=== PATIENT | female | born 1930 | race Caucasian/White ===

== ENCOUNTER 2017-03-01 15:29 | Inpatient (IN) | payer OTHER ==
--- NOTE | ~2017-03-01 | CN ---
Consultation Report [facility] [address] [place]. [address] NAME: MARY KOENIG : 30 STATUS : DIS IN PAT#: [id number] AGE: 86 ADM/REG DATE : 03/01/17 MR#: [id number] REPORT SERV DATE: 03/07/17 DICTATED BY: EDWARD WALDEN DATE: 03/06/17 REPORT STATUS : Draft TRANSCRIBED BY: MODL DATE: 03/06/17 DATE OF CONSULTATION: 03/05/2017 Consultation REASON FOR CONSULTATION: Urinary retention. HISTORY OF PRESENT ILLNESS: Ms. Koenig is an 86-year-old female, who is admitted to the (inaudible) hospital with cough, suprapubic tenderness with difficulty urination. She is admitted to the Hospitalist Service. Upon admission, she was found to have urinary retention with bladder. A Durand catheter was placed. She has had trouble with urination for quite some time, it is unclear how long she has actually been in the urinary retention. Catheter is draining well, and her urine is clear. I have been asked to consult regarding her urinary retention. PAST MEDICAL HISTORY: COPD, history of pneumonia, hyperthyroidism, ischemic colitis, anemia, rheumatoid arthritis, chronic back pain, neuropathy, history of paroxysmal atrial fibrillation. SURGICAL HISTORY: Partial colectomy, small bowel resections, cataracts, hemorrhoidectomy, right total knee replacement, right ankle ORIF, hysterectomy, salpingo-oophorectomy. SOCIAL HISTORY: Former smoker. No drinking. No drugs. Accompanied by her family. ALLERGIES: MORPHINE, CODEINE, HYDROCODONE, ERYTHROMYCIN, ZOFRAN. MEDICATIONS: Reviewed and listed in the chart. FAMILY HISTORY: Noncontributory. REVIEW OF SYSTEMS: A 12-point review of systems was performed. Pertinent positives are listed in the HPI. PHYSICAL EXAMINATION: VITAL SIGNS: Afebrile, blood pressure 137/66, heart rate 88, saturating 100% on 3L. GENERAL: In no acute distress. She appears her stated age. HEENT: normocephalic and atraumatic. LUNGS: Breathing is nonlabored. She is not in respiratory distress. HEART: Pulse is regular in rate and rhythm. ABDOMEN: Soft, nontender, nondistended. She has a CVA tenderness. NEURO: She is alert and oriented x3. Durand catheter is in place. Urine clear. No cyanosis or edema. IMAGING: No pertinent imaging. Consultation Report [address] [place]. [address] NAME: MARY KOENIG : 30 STATUS : DIS IN PAT#: [id number] AGE: 86 ADM/REG DATE : 03/01/17 MR#: [id number] REPORT SERV DATE: 03/07/17 DICTATED BY: EDWARD WALDEN DATE: 03/06/17 REPORT STATUS : Draft TRANSCRIBED BY: SIMIN DATE: 03/06/17 LABORATORY DATA: White count 14.3, hemoglobin 8.5, creatinine is 0.88. ASSESSMENT AND PLAN: Ms. Koenig has acute urinary retention with a high residual of a liter. This includes dysfunction of her bladder. However, at this time, I will allow her to keep her Durand catheter for a week while rest of her bladder hoping slightest recovery. Get her bach to clinic next Tuesday for a fill pull void. If she is able to pass this, then we will re-evaluate her in a week to make sure she is still doing well. She was found to be in chronic retention, wiil have options including Durand catheter, suprapubic tube, intermittent catheterization for consideration of InterStim. She is clearly not the healthiest of patients. Will be slow to advise any sort of operative intervention. Thank you for this consultation. RHONDA/SIMIN Edward Walden MD / [id number] CC: Selwyn Crane M.D. Lata Diop
--- NOTE | ~2017-03-01 | HP ---
History And Physical [place] [id number] [facility] [place]. [address] NAME: MARY HALL : 30 STATUS : ADM IN [facility]#: [id number] AGE: 86 ADM/REG DATE : 03/01/17 MR#: [id number] REPORT SERV DATE: 03/02/17 DICTATED BY: AVIS SCHULTZ DATE: 03/01/17 REPORT STATUS : Draft TRANSCRIBED BY: MODL DATE: 03/01/17 DATE OF ADMISSION: 03/01/2017 CHIEF COMPLAINT: Increasing shortness of breath, nonproductive cough, and wheezing for three to four days as well as suprapubic tenderness and difficulty urinated for more than two weeks. HISTORY OF PRESENT ILLNESS: This is a very pleasant 86-year-old female. She has a reported history of COPD she use oxygen at night, history of coronary artery disease status post prior PCI, history of GERD, hypothyroidism, prior history of diverticulitis, she had prior small bowel resection and prior partial colectomy. She has a history of ischemic colitis as well, rheumatoid arthritis, peripheral neuropathy, pneumonia, hypothyroidism, chronic back pain, presenting today to emergency room with three to four days complaints of increasing shortness of breath, non-productive cough as well as wheezing, and for two weeks increased urinary frequency, urgency, dysuria, and difficulty urinating. According to the patient, the symptoms of difficulty urinating is going on for a couple of actually months, but most progressive over the last couple of weeks. She has seen her primary care provider. She has been treated with antibiotics for presumed UTI and then for a presumed fungus of yeast infection; however, she has been presenting today mostly because of this increasing shortness of breath, wheezing, and weakness. She has not had any chest pain or PND or orthopnea. No palpitations. She did have some slight pedal edema, but no orthopnea or PND. No presyncope or syncope. She does have a history of cardiac murmur, but she does not have any history of any rheumatic fever. She has been evaluated in the emergency room and Hospitalist Service has been asked for admission, further evaluation, and treatment. PAST MEDICAL HISTORY: Significant for COPD, history of pneumonia, hypothyroidism, ischemic colitis, anemia, rheumatoid arthritis, chronic back pain, neuropathy. She also has had a history of pneumonia, paroxysmal atrial fibrillation, and history of prior colonic perforations secondary to one colonoscopy. PAST SURGICAL HISTORY: Would include partial colectomy status post small-bowel resection, cataract extraction with lens implants, hemorrhoidectomy, right total knee replacement, right ankle open reduction and internal fixation. She has total post hysterectomy and salpingo-oophorectomy. SOCIAL HISTORY: She is not a smoker, she quit in 1985. No alcohol. No IV drugs. ALLERGIES: SHE IS ALLERGIC TO MORPHINE, CODEINE, HYDROCODONE, ERYTHROMYCIN, AND ZOFRAN. HOME MEDICATIONS: Medications at home include: 1. Tylenol. 2. Xanax. 3. Aspirin. 4. Symbicort. 5. Vitamin B12. 6. Prolia. History And Physical [address] [address] NAME: MARY HALL : 30 STATUS : ADM IN [facility]#: [id number] AGE: 86 ADM/REG DATE : 03/01/17 MR#: [id number] REPORT SERV DATE: 03/02/17 DICTATED BY: AVIS SCHULTZ DATE: 03/01/17 REPORT STATUS : Draft TRANSCRIBED BY: SIMIN DATE: 03/01/17 7. Iron sulfate. 8. Neurontin. 9. Plaquenil. 10.Levothyroxine. 11.Antivert. 12.Lialda. 13.Singulair. 14.Aleve. 15.Nitroglycerin. 16.Prilosec. 17.MiraLAX. 18.Systane. 19.Sulfasalazine. 20.Vitamin E. 21.Tramadol. REVIEW OF SYSTEMS: A 14-point review of systems has been obtained and pertinent positive has been listed into the history of present illness. Otherwise, negative except those underlying above. FAMILY HISTORY: Significant for coronary artery disease, diabetes, hypertension, and depression. PHYSICAL EXAMINATION: VITAL SIGNS: The patient is afebrile. Blood pressure 137/66, heart rate 88, respiratory rate 17, and saturating 100% on 3 L of oxygen. GENERAL: She is a very pleasant, well-developed, well-nourished female, in no acute distress. She is alert and oriented x3. Nonfocal. She follows all commands appropriately. HEENT: Pupils equal, round, and reactive to light. Extraocular movements intact. No JVD. No lymphadenopathy. No thyromegaly appreciated. CHEST: Bilateral air entry. Scattered wheezes, few crackles bibasilarly. No use of accessory muscles. CARDIOVASCULAR: Regular rate and rhythm. S1, S2 positive. No S3, no S4. No murmurs, rubs, or gallops appreciated. ABDOMEN: Soft with positive bowel sounds. Nontender. No guarding. No rebound. EXTREMITIES: No clubbing or cyanosis. There are trace edema. Pulses +2 present bilaterally. LABORATORY DATA: Labs from today include sodium 139, potassium 3.6, chloride 107, CO2 of 28, BUN 10, creatinine 0.96, and glucose is 90. Her troponin I is less than 0.02. Her BNP is 295.9. Her white count is 8, hemoglobin 10, hematocrit 30.5, and platelets 209. INR is 1.2. Her UA has been negative. History And Physical [address] [address] NAME: MARY HALL : 30 STATUS : ADM IN [facility]#: [id number] AGE: 86 ADM/REG DATE : 03/01/17 MR#: [id number] REPORT SERV DATE: 03/02/17 DICTATED BY: AVIS SCHULTZ DATE: 03/01/17 REPORT STATUS : Draft TRANSCRIBED BY: SIMIN DATE: 03/01/17 Chest x-ray, portable, performed in the emergency room shows chronic changes, mild congestion. ASSESSMENT: This is a very pleasant 86-year-old with: 1. Chronic obstructive pulmonary disease exacerbation. 2. Possible mild congestive heart failure. 3. Urinary retention. 4. History of hypothyroidism. 5. History of gastroesophageal reflux disease. 6. History of gastrointestinal bleed. 7. History of diverticulitis. 8. History of degenerative joint disease. 9. History of rheumatoid arthritis. PLAN: 1. The patient is going to be admitted to Hospitalist Service regarding her COPD exacerbation. Place her on oxygen. Place her on steroids nebulizer treatments, antibiotics empiric. We will continue her Symbicort. We will give her a dose of Lasix tonight. Follow up on CT of the chest without contrast in the morning, blood cultures as well and check a procalcitonin level. 2. Possible mild congestive heart failure. We are going to rule the patient out for SC by serial cardiac enzymes, serial EKG. Check on 2D echo. Continue her home medication. Give her Lasix tonight. 3. Urinary retention. Durand catheter. Strict I's and O's. Strict daily weights. 4. History of hypothyroidism. Continue her home medication. Check a TSH and free T4. 5. Peripheral neuropathy. Continue her home medication. Provide reasonable pain and nausea control as well as GI and DVT prophylaxis. Further workup and recommendation pending above. It is worthwhile to note that the patient is going to be followed up by Hospitalist Service. CF/MODL Avis Schultz M.D. / [id number] CC: Naveen Hernández PA-C
--- NOTE | ~2017-03-01 | DS ---
Discharge Summary [facility] [address] [place]. [address] NAME: MARY HALL : 30 STATUS : DIS IN PAT#: [id number] AGE: 86 ADM/REG DATE : 03/01/17 MR#: [id number] REPORT SERV DATE: 03/04/17 DICTATED BY: DATE: REPORT STATUS : Draft TRANSCRIBED BY: MODL DATE: 03/03/17 ADMISSION DATE: 03/01/2017 DISCHARGE DATE: 03/03/2017 CONSULTANTS: Included Dr. Walden of Urology. DISCHARGE DIAGNOSES: 1. Acute urinary retention - probably chronic. Status post Durand catheterization. To discharge with a Durand catheter in place, and outpatient voiding trial with Dr. Walden. 2. Acute chronic obstructive pulmonary disease exacerbation. 3. Acute bronchitis. 4. Acute on chronic hypoxemic respiratory failure - evaluation for home daytime oxygen use pending. 5. Pulmonary edema at admission - no evidence of congestive heart failure by echocardiogram. 6. Obstructive sleep apnea, on nocturnal oxygen. 7. History of rheumatoid arthritis - recently initiated on Plaquenil. With some anemia, for outpatient followup. 8. Hypothyroidism. 9. Bilateral lower extremity neuropathy. 10.History of ischemic colitis. 11.Chronic back pain. 12.History of coronary artery disease and prior percutaneous intervention. 13.Generalized weakness. 14.Recent increase in diffuse joint pain and musculoskeletal pain - suspect due to autoimmune etiologies. IMAGIN. Portable chest x-ray, 03/01/2017, acute bilateral asymmetric infiltrates superimposed on chronic interstitial lung disease. 2. Chest CT without contrast, 03/02/2017, changes of chronic pulmonary disease most pronounced in the right lung. Likely postinflammatory. No segmental consolidation or acute pneumonic process. No acute intraabdominal process. 3. CT abdomen and pelvis, 03/02/2017, no acute intraabdominal process. 4. Echocardiogram, 03/02/2017, mild concentric left ventricular hypertrophy, moderate low- gradient aortic stenosis and posterior mitral annular calcification. PERTINENT LABS: White blood cell count at admission 5.1 with negative procalcitonin, hemoglobin values 8.5 to 10 this admission, platelet count normal. INR 1.2. Basic metabolic panel, normal. Liver enzymes, normal. Vitamin D 37, CRP 12.7, sedimentation rate 59, TSH and free T4 normal, hemoglobin A1c 5.3, strep pneumococcal antigen and Legionella antigen negative. Urinalysis negative. Troponin 0.02 to 0.07. BNP 300 to 400. BRIEF HISTORY: For full details, please see the previously dictated history of present illness by Dr. Avis Spann. This is an 86-year-old white female admitted through the Discharge Summary [address] [address] NAME: MARY HALL : 30 STATUS : DIS IN PAT#: [id number] AGE: 86 ADM/REG DATE : 03/01/17 MR#: [id number] REPORT SERV DATE: 03/04/17 DICTATED BY: DATE: REPORT STATUS : Draft TRANSCRIBED BY: MODL DATE: 03/03/17 emergency department with multiple complaints, including suprapubic tenderness and difficulty urinating, increasing shortness of breath, nonproductive cough, wheezing for three to four days prior to admission. The patient has a history of COPD and sleep apnea, utilizing oxygen at night, but not typically during the day. She also has a history of rheumatoid arthritis and ischemic colitis, and takes several disease-modifying agents and immune suppressants. She also had been treated for multiple urinary tract infections in the outpatient setting without any improvement in her urinary symptoms. In the emergency department, she was found to have acute urinary retention, alleviated with Durand catheter placement. She was also found to have [id number] hypoxemic respiratory failure with some wheezing and a COPD exacerbation. She was admitted to the Hospitalist Service for management of this. HOSPITAL COURSE: The patient was placed on supplemental oxygen, IV steroids, nebulizer treatments, empiric antibiotic of Levaquin. Her Symbicort was continued. CT of the chest, abdomen, and pelvis was obtained the morning after admission demonstrating no acute abnormalities. The etiology of the patient's urinary retention was unclear and Urology consultation was obtained for recommendations on the Durand catheter and medications. Dr. Walden saw the patient, recommended that she be discharged with an outpatient voiding trial. No additional medications were added. The patient's COPD exacerbation and acute bronchitis improved with the above management strategies and she received three days of an antibiotic here in the hospital. Her family wondered whether she would require oxygen for use during the day and she is being evaluated for that prior to discharge. The patient had evidence of some pulmonary edema on admission chest x-ray, but no history of congestive heart failure. She was given one dose of Lasix and an echocardiogram was obtained. BNP was minimally elevated. Echocardiogram did not demonstrate any congestive heart failure. The patient complained of diffuse joint pains and musculoskeletal pains during the admission, improved on steroids. She has a history of rheumatoid arthritis and is RILEY positive in the past. She was recently started on Plaquenil by Dr. Mac. It has not been sufficient time to assess response to this medication. She is encouraged to follow up with Dr. Mac within the next one to two weeks for reevaluation of her rheumatologic symptoms. Also, she was noted to have some decline in her hemoglobin this admission, but no active GI losses. Her discharge hemoglobin value was 8.5. This may be related to the Plaquenil and will need reevaluation as well. The patient's other medical issues were stable this admission. She worked with Physical Therapy here, but refused to go to a fdc facility for additional therapy. She wanted to go home instead with home health and home physical therapy, and this is being arranged. Discharge Summary [address] [address] NAME: MARY HALL : 30 STATUS : DIS IN PAT#: [id number] AGE: 86 ADM/REG DATE : 03/01/17 MR#: [id number] REPORT SERV DATE: 03/04/17 DICTATED BY: DATE: REPORT STATUS : Draft TRANSCRIBED BY: SIMIN DATE: 03/03/17 DISCHARGE DISPOSITION: The patient is discharged to home in the care of her family with her Durand catheter in place, oxygen needs to be determined, with daytime oxygen ordered if indicated. She has no specific dietary or activity restrictions. Home health and home physical therapy will be provided through [facility] and Case Management will arrange for the services in the morning, as the patient was insistent to be discharged this evening after Case Management had left. The patient is recommended to call Dr. Walden' office in the morning to arrange for an outpatient voiding trial and also needs to follow up with Dr. Mac in one to two weeks regarding her Plaquenil and possible Plaquenil-induced anemia. DISCHARGE MEDICATIONS: Include: 1. Aspirin 81 mg p.o. daily. 2. Neurontin 300 mg p.o. q.a.m. and 600 mg p.o. q.h.s. 3. Plaquenil 200 mg p.o. twice a day. 4. Levothyroxine 100 mcg p.o. daily. 5. Lialda 1.2 g p.o. twice a day. 6. Prilosec 40 mg p.o. q.a.m. 7. Vitamin B12 at 1000 mcg IM monthly. 8. Vitamin E 400 units p.o. on Tuesday and . 9. Dulera 200/5 mcg two puffs inhaled twice a day as needed - the patient prefers to take this than her home Symbicort. 10.Iron 200 mg p.o. daily. 11.Singulair 10 mg p.o. daily as needed. 12.Sulfasalazine 500 mg p.o. twice a day. 13.Ultram 50 mg p.o. twice a day as needed. 14.Tylenol 1000 mg p.o. twice a day as needed. 15.Xanax 0.125 to 0.25 mg p.o. twice a day p.r.n. anxiety or insomnia. 16.Antivert 12.5 mg p.o. daily as needed for vertigo. 17.Prolia 60 mg subcu q.6 months. 18.Systane eye drops in each eye twice a day. 19.MiraLAX 17 g p.o. daily as needed. 20.Sublingual nitroglycerin 0.4 mg p.r.n. shortness of breath. 21.Levaquin 750 mg p.o. q.48 hours x3 doses to start on 03/04/2017. 22.Medrol Dosepak one dispensed, take as directed. 23.Albuterol MDI two puffs q.4 hours p.r.n. shortness of breath. Forty-five minutes total was spent in patient encounter and discharge planning on 03/03/2017. DICTATED BY: Naveen Hernández/SIMIN Discharge Summary [address] [place]. [address] NAME: MARY HALL : 30 STATUS : DIS IN PAT#: [id number] AGE: 86 ADM/REG DATE : 03/01/17 MR#: [id number] REPORT SERV DATE: 03/04/17 DICTATED BY: DATE: REPORT STATUS : Draft TRANSCRIBED BY: MODL DATE: 03/03/17 Selwyn Crane M.D. / [id number] CC: Naveen Hernández MD Suresh Enjeti, M.D. Leonard Hays III, M.D., [facility], [facility] Annie Butt MD
[~2017-03-01 15:29] MED LIST: 8 HOUR650 MG PO; ABX; ACET500CAP PO; ASA5GR PO; ASAB PO; ASABAYER PO; ASAEC PO; AUG875 PO; B121000P IM; BACDS PO; CLARIT10 PO; COREG12 PO; COREG6 PO; EZFE 200200 MG PO; FLEX PO; LEVAQUIN750 MG PO; LEVOTHYROXIN100 MCG PO; LEVSINTAB PO; LIALDA1.2 GM PO; LIQUID TEARS OPH; MCZ125 PO; MCZ25 PO; MIRALAXPKT PO; NEUR300 PO; NEUR600 PO; PLAQ200B PO; PR12.5 PO; PRILOSEC40 MG PO; STEROID INJECTION IM; SYMBICORT 160/41 INH INH; SYMBICORT 80/4.1 INH INH; SYN1 PO; SYSTANE OPH; T PO; THERGRANM PO; ULTRAM50 PO; X25 PO; XANAX PO; [UNRECOGNIZED DRUG - OTHER] OPH
[2017-03-01 17:07] LABS: BASOPHILS ABSOLUTE 0.08 10/3/uL (0.0-0.16); EOSINOPHILS 2.2 %; EOSINOPHILS ABSOLUTE 0.18 10/3/uL (0.0-0.53); ER CBC TAT 0 Hrs 05 Mins; HEMATOCRIT 30.5 % (36.0-48.0); IMMATURE GRANULOCYTES 0.2 %; IMMATURE GRANULOCYTES ABSOLUTE 0.02 10/3/uL (0.0-0.11); LYMPHOCYTES 18.7 %; MEAN CORPUS HGB CONC 32.8 g/dL (32.0-36.0); MEAN CORPUSCULAR HEMOGLOB 29.8 pg (26.0-34.0); MEAN PLATELET VOLUME 9.1 fL (9.2-13.0); MONOCYTES 6.6 %; MONOCYTES ABSOLUTE 0.53 10/3/uL (0.21-1.20); NEUTROPHILS 71.3 %; NEUTROPHILS ABSOLUTE 5.73 10/3/uL (2.02-8.40); PLATELET COUNT 209 10/3/uL (150-400); RBC DISTRIBUTION WIDTH 14.1 % (12.0-16.0); RED CELL COUNT 3.36 10/6/uL (4.0-5.6)
[2017-03-01 17:09] LABS: MANUAL DIFF NO %; MEAN CORPUSCULAR VOLUME 90.8 fL (80-100)
[2017-03-01 17:15] LABS: INTERNATIONAL NORMAL RATI 1.2 UNITS (-); PARTIAL THROMBO TIME 34.1 SEC (22.5-37.2); PROTIME (NOT ORD) 15.4 SEC (12.0-14.5)
[2017-03-01 17:25] LABS: BUN (BLOOD UREA NITROGEN) 10 MG/DL (6-23); CHEST PAIN PROFILE TAT 0 Hrs 23 Mins; CHLORIDE, SERUM 107 MMOL/L (96-112); CO2 (CARBON DIOXIDE) 28 MMOL/L (24-34); CREATININE 0.96 MG/DL (0.55-1.02); GFR AFRICAN AMERICAN 62 ML/MIN (>=60); GFR NON AFRICAN AMERICAN 54 ML/MIN (>=60); GLUCOSE, SERUM 90 MG/DL (60-99); POTASSIUM, SERUM 3.6 MMOL/L (3.5-5.3); SODIUM, SERUM 139 MMOL/L (135-148); TROPONIN I <0.02 NG/ML (<0.05)
[2017-03-01 17:31] LABS: B NATRIURETIC PEPTIDE (BNP) 295.9 PG/ML (< 100.0)
[2017-03-01] MEDS ORDERED: ALEVE220 MG PO (17:46)
[2017-03-01] MEDS ORDERED: EZFE 200200 MG PO (17:47)
[2017-03-01] MEDS ORDERED: SINGULAIR1 PO (17:47)
[2017-03-01] MEDS ORDERED: SULFAZINE500 MG PO (17:48)
[2017-03-01] MEDS ORDERED: PLAQ200B PO (17:51)
[2017-03-01] MEDS ORDERED: NEUR300 PO (17:51)
[2017-03-01] MEDS ORDERED: LEVOTHYROXIN100 MCG PO (17:52)
[2017-03-01] MEDS ORDERED: NEUR600 PO (17:52)
[2017-03-01] MEDS ORDERED: PRILOSEC40 MG PO (17:52)
[2017-03-01] MEDS ORDERED: VITE PO (17:53)
[2017-03-01] MEDS ORDERED: ASAB PO (17:53)
[2017-03-01] MEDS ORDERED: ULTRAM50 PO (17:55)
[2017-03-01] MEDS ORDERED: LIALDA1.2 GM PO (17:56)
[2017-03-01] MEDS ORDERED: ACET500CAP PO (17:56)
[2017-03-01] MEDS ORDERED: X25 PO (17:57)
[2017-03-01] MEDS ORDERED: MCZ125 PO (17:58)
[2017-03-01] MEDS ORDERED: SYMBICORT 80/4.1 INH INH (17:58)
[2017-03-01] MEDS ORDERED: PROLIA60 MG/1 ML SC (17:59)
[2017-03-01] MEDS ORDERED: SYSTANE OPH (18:00)
[2017-03-01] MEDS ORDERED: MIRALAX POWDER1 PKT PO (18:00)
[2017-03-01] MEDS ORDERED: B121000P IM (18:01)
[2017-03-01] MEDS ORDERED: NITROSTAT0.4 MG SL (18:02)
[2017-03-01 18:58] LABS: WBC (NOT ORDERED) (RFLEX) 0 (0-5)
[2017-03-01 19:05] LABS: ASCORBIC ACID (UR NOT ORDER) NEG (NEG); BILIRUBIN, URINE NEGATIVE (NEG); ER URINALYSIS TAT 0 Hrs 07 Mins; KETONE, URINE NEGATIVE (NEG); LEUKOCYTE ESTERASE(NOT OR NEG (NEG); NITRITE (URINE) NEG (NEG)
[2017-03-01 23:07] LABS: PROCALCITONIN <0.05 ng/mL (<0.5)
[2017-03-01 23:17] LABS: FERRITIN 49 NG/ML (8-252); FREE T4 1.31 NG/DL (0.76-1.46); IRON BINDING CAPACITY 238 MCG/DL (225-410); IRON, SERUM 17 MCG/DL (35-150); SGPT(ALT) 12 U/L (5-65)
[2017-03-01 23:32] LABS: ALKALINE PHOSPHATASE 81 U/L (45-117); SGOT(AST) 22 U/L (5-40); TOTAL BILIRUBIN 0.3 MG/DL (0-1.2)
[2017-03-01 23:37] LABS: DIRECT BILIRUBIN < 0.1 MG/DL (0.0-0.4); INDIRECT BILIRUBIN(NOT ORDER) 0.2 MG/DL (0.1-0.9)
[2017-03-02 01:55] LABS: CPK < 7 U/L (0-200)
[2017-03-02 01:56] LABS: TROPONIN I 0.07 NG/ML (<0.05)
[2017-03-02 05:36] LABS: A/G RATIO 0.6 (0.7-1.9); ALKALINE PHOSPHATASE 78 U/L (45-117); BUN (BLOOD UREA NITROGEN) 13 MG/DL (6-23); CHLORIDE, SERUM 104 MMOL/L (96-112); CREATININE 1.06 MG/DL (0.55-1.02); GFR AFRICAN AMERICAN 55 ML/MIN (>=60); GFR NON AFRICAN AMERICAN 48 ML/MIN (>=60); SGOT(AST) 17 U/L (5-40); SGPT(ALT) 15 U/L (5-65); SODIUM, SERUM 136 MMOL/L (135-148); TOTAL BILIRUBIN 0.3 MG/DL (0-1.2); TOTAL PROTEIN 8.2 G/DL (6.0-8.5)
[2017-03-02 05:42] LABS: CO2 (CARBON DIOXIDE) 22 MMOL/L (24-34); GLOBULIN 5.2 G/DL (2.5-4.1); GLUCOSE, SERUM 178 MG/DL (60-99)
[2017-03-02 07:03] LABS: BASOPHILS 0 %; EOSINOPHILS 0 %; HEMATOCRIT 28.5 % (36.0-48.0); HEMOGLOBIN 9.4 g/dL (12.0-16.0); IMMATURE GRANULOCYTES 0.2 %; IMMATURE GRANULOCYTES ABSOLUTE 0.01 10/3/uL (0.0-0.11); LYMPHOCYTES 13.8 %; MEAN CORPUSCULAR HEMOGLOB 30.1 pg (26.0-34.0); MEAN CORPUSCULAR VOLUME 91.3 fL (80-100); MEAN PLATELET VOLUME 9.4 fL (9.2-13.0); MONOCYTES 2.2 %; MONOCYTES ABSOLUTE 0.11 10/3/uL (0.21-1.20); NEUTROPHILS 83.8 %; NEUTROPHILS ABSOLUTE 4.25 10/3/uL (2.02-8.40); PLATELET COUNT 215 10/3/uL (150-400); RED CELL COUNT 3.12 10/6/uL (4.0-5.6); WHITE BLOOD CELLS 5.1 10/3/uL (4.5-10.5)
[2017-03-02 07:04] LABS: MANUAL DIFF NO %
[2017-03-02 07:53] LABS: GLYCOHEMOGLOBIN (HbA1c) 5.3 % (4.7-6.1)
[2017-03-02 10:19] LABS: TROPONIN I <0.02 NG/ML (<0.05)
[2017-03-02 10:20] LABS: CK-MB 1.4 NG/ML; CPK 58 U/L (0-200)
[2017-03-02 19:09] LABS: CPK 65 U/L (0-200); TROPONIN I <0.02 NG/ML (<0.05)
[2017-03-03 05:34] LABS: BASOPHILS 0.1 %; BASOPHILS ABSOLUTE 0.01 10/3/uL (0.0-0.16); EOSINOPHILS 0 %; HEMOGLOBIN 8.5 g/dL (12.0-16.0); IMMATURE GRANULOCYTES 0.4 %; IMMATURE GRANULOCYTES ABSOLUTE 0.06 10/3/uL (0.0-0.11); LYMPHOCYTES 8.9 %; LYMPHOCYTES ABSOLUTE 1.27 10/3/uL (0.67-4.30); MEAN CORPUS HGB CONC 33.3 g/dL (32.0-36.0); MEAN CORPUSCULAR VOLUME 90.1 fL (80-100); MEAN PLATELET VOLUME 9.3 fL (9.2-13.0); MONOCYTES 4.1 %; MONOCYTES ABSOLUTE 0.58 10/3/uL (0.21-1.20); NEUTROPHILS 86.5 %; NEUTROPHILS ABSOLUTE 12.34 10/3/uL (2.02-8.40); PLATELET COUNT 202 10/3/uL (150-400); RED CELL COUNT 2.83 10/6/uL (4.0-5.6)
[2017-03-03 05:36] LABS: HEMATOCRIT 25.5 % (36.0-48.0); MANUAL DIFF NO %; WHITE BLOOD CELLS 14.3 10/3/uL (4.5-10.5)
[2017-03-03 05:46] LABS: BUN (BLOOD UREA NITROGEN) 17 MG/DL (6-23); C-REACTIVE PROTEIN 12.7 MG/L (<8.0); CALCIUM, SERUM 7.6 MG/DL (8.5-10.4); CHLORIDE, SERUM 103 MMOL/L (96-112); CO2 (CARBON DIOXIDE) 23 MMOL/L (24-34); CREATININE 0.88 MG/DL (0.55-1.02); GFR AFRICAN AMERICAN 69 ML/MIN (>=60); GFR NON AFRICAN AMERICAN 59 ML/MIN (>=60); GLUCOSE, SERUM 127 MG/DL (60-99); POTASSIUM, SERUM 4.3 MMOL/L (3.5-5.3); SODIUM, SERUM 134 MMOL/L (135-148)
[2017-03-03 06:24] LABS: SED RATE 59 MM/HR (0-20)
[2017-03-03] MEDS ORDERED: DULERA 200 MCG/13 GM INH (19:04)
[2017-03-03] MEDS ORDERED: MEDROLPAK4 PO (19:04)
[2017-03-03] MEDS ORDERED: LEVAQUIN750 MG PO (19:04)
[2017-03-03] MEDS ORDERED: PROVHFA INH (19:05)
== END 2017-03-03 22:25 | disposition home health service (06) | DRG 189 ==
LOC: ER 15:29 → 7NO 20:52
PROVIDERS: Emergency Medicine; Hospitalist; Internal Medicine
DX: J96.21 Acute and chronic respiratory failure with hypoxia (principal); J44.0 Chronic obstructive pulmonary disease with (acute) lower respiratory infection; J81.1 Chronic pulmonary edema; G62.9 Polyneuropathy, unspecified; J44.1 Chronic obstructive pulmonary disease with (acute) exacerbation; K21.9 Gastro-esophageal reflux disease without esophagitis; R33.9 Retention of urine, unspecified; J20.9 Acute bronchitis, unspecified; G47.33 Obstructive sleep apnea (adult) (pediatric); I25.10 Atherosclerotic heart disease of native coronary artery without angina pectoris; M54.9 Dorsalgia, unspecified; M06.9 Rheumatoid arthritis, unspecified; M19.90 Unspecified osteoarthritis, unspecified site; E03.9 Hypothyroidism, unspecified; Z95.5 Presence of coronary angioplasty implant and graft; Z79.899 Other long term (current) drug therapy; Z79.82 Long term (current) use of aspirin; Z90.49 Acquired absence of other specified parts of digestive tract; Z87.01 Personal history of pneumonia (recurrent); Z96.651 Presence of right artificial knee joint; Z90.710 Acquired absence of both cervix and uterus; Z88.5 Allergy status to narcotic agent; Z88.1 Allergy status to other antibiotic agents; Z87.891 Personal history of nicotine dependence; Z83.3 Family history of diabetes mellitus
CPT/HCPCS: 71010; 71250; 74176; 80048; 80053; 80076; 81001; 82306; 82550; 82553; 82728; 83036; 83540; 83550; 83615; 83735; 83880; 84100; 84145; 84439; 84443; 84484; 85025; 85610; 85652; 85730; 86140; 87040; 87449; 93005; 94640; 96374; 99285; A9270-GY; C8929; J1170; J1956; J2930; Q9957